=== PATIENT | female | born 1995 | race Caucasian/White ===

== ENCOUNTER 2019-04-02 23:01 | Emergency (ER) | payer BC, MEDICAID ==
[~2019-04-02] VITALS: Ht 160 cm; Wt 50.0 kg
--- NOTE | 2019-04-02 23:28 | NUR ---
Patient states she has had epigastric pain, nasal congestion, nausea, and diarrhea x5 days. Nothing makes it better. Patient is in no apparent distress. She is resting in bed. States pain is 10/10.
[2019-04-02] MEDS ORDERED: HYDROcodone/APAP 5/325 TABLET PO ONE (23:30)
[2019-04-02] MEDS ORDERED: HYDROcodone/APAP 5/325 TABLET ONE (23:44)
[2019-04-02 23:46] LABS: BASOPHILS # (AUTO) 0.02 x10^3/uL (0-0.1); BASOPHILS % (AUTO) 0 % (0-1); EOSINOPHILS % (AUTO) 0 % (1-7); LYMPHOCYTES # (AUTO) 1.73 x10^3/uL (1-3.4); LYMPHOCYTES % (AUTO) 36 % (22-44); MD NO; MEAN CORPUSCULAR HEMOGLOBIN 29.5 pg (27.0-34.8); MEAN CORPUSCULAR HGB CONC 33.5 g/dL (32.4-35.8); MEAN PLATELET VOLUME 7.8 fL (7.4-10.4); MONOCYTES # (AUTO) 0.49 x10^3/uL (0.2-0.8); MONOCYTES % (AUTO) 10 % (2-9); NEUTROPHILS % (AUTO) 54 % (42-75); PLATELET COUNT 147 x10^3/uL (130-400); RED BLOOD COUNT 5.04 x10^6/uL (3.82-5.3); RED CELL DISTRIBUTION WIDTH 13.9 % (9.6-15.2)
[2019-04-02 23:50] LABS: RAPID INFLUENZA A Negative (Negative); RAPID INFLUENZA B Negative (Negative)
[2019-04-02 23:58] LABS: ALBUMIN 3.8 g/dL (3.4-5.0); ANION GAP 8 mmol/L (5-15); CALCIUM 8.6 mg/dL (8.5-10.1); CHLORIDE 111 mmol/L (98-107)
[2019-04-03 00:19] VITALS: BP 102/70
[2019-04-03 00:55] LABS: CULTURE INDICATED? YES; MICROSCOPIC INDICATED
--- NOTE | 2019-04-03 01:10 | NUR ---
REPORT RECEIVED, POC DISCUSSED, CARE ASSUMED. URINE SAMPLE PENDING.
--- NOTE | 2019-04-03 01:50 | NUR ---
PT DC'D HOME WITH RX X3 AND UNDERSTANDING OF INSTRUCTIONS. PT AMBULATED TO DC DESK WITHOUT DIFFICULTY.
== END 2019-04-03 01:52 | disposition home or self-care (01) ==
LOC: ED 04-03 00:42
DX: B34.9 Viral infection, unspecified (principal); N30.00 Acute cystitis without hematuria; M79.10 Myalgia, unspecified site; R11.0 Nausea
CPT/HCPCS: 36415; 80048; 81001; 82040; 83605; 85025; 87040; 87077; 87086; 87186; 87400; 99283

== ENCOUNTER 2019-04-04 16:00 | Emergency (ER) | payer BC ==
[~2019-04-04] VITALS: Ht 160 cm; Wt 48.7 kg
[2019-04-04 17:17] LABS: BASOPHILS % (AUTO) 2 % (0-1); EOSINOPHILS # (AUTO) 0.03 x10^3/uL (0-0.4); EOSINOPHILS % (AUTO) 1 % (1-7); LYMPHOCYTES # (AUTO) 2.63 x10^3/uL (1-3.4); LYMPHOCYTES % (AUTO) 46 % (22-44); MD NO; MEAN CORPUSCULAR VOLUME 90.7 fL (80-100); MEAN PLATELET VOLUME 7.7 fL (7.4-10.4); MONOCYTES # (AUTO) 0.41 x10^3/uL (0.2-0.8); MONOCYTES % (AUTO) 7 % (2-9); NEUTROPHILS # (AUTO) 2.58 x10^3/uL (1.8-6.8); NEUTROPHILS % (AUTO) 45 % (42-75); PLATELET COUNT 164 x10^3/uL (130-400); RED BLOOD COUNT 5.14 x10^6/uL (3.82-5.3); RED CELL DISTRIBUTION WIDTH 14.3 % (9.6-15.2)
[2019-04-04 17:30] LABS: CHLORIDE 110 mmol/L (98-107)
[2019-04-04 17:42] LABS: ALANINE AMINOTRANSFERASE 34 U/L (12-78); ALKALINE PHOSPHATASE 60 U/L (45-117); ANION GAP 6 mmol/L (5-15); BILIRUBIN,TOTAL 0.5 mg/dL (0.2-1.0); TOTAL PROTEIN 8.4 g/dL (6.4-8.2)
--- NOTE | 2019-04-04 18:18 | NUR ---
[employer] associate: Pt ambulatory to ED room 02 from raheel in [facility] at this time.
--- NOTE | 2019-04-04 18:19 | NUR ---
PT WITH C/O N/V/D SINCE 04/02. PT WAS HERE AND DISCHARGED HOME AND SYMPTOMS HAVE NOT RELEIVED. PT IN HOSPITAL GOWN AT THIS TIME.
--- NOTE | 2019-04-04 18:45 | NUR ---
ERPROVIDER IN TO EVAL PT, AWAITING ORDERS AT THIS TIME
[2019-04-04 18:47] LABS: CULTURE INDICATED? YES; MICROSCOPIC INDICATED
[2019-04-04] MEDS ORDERED: MAALOX/HYOSCYAMINE/LIDOCAINE 45 ML BTL PO ONE (19:00)
[2019-04-04] MEDS ORDERED: ONDANSETRON ODT 4 MG PO ONE (19:00)
[2019-04-04] MEDS ORDERED: ONDANSETRON ODT 4 MG ONE (19:00)
[2019-04-04] MEDS ORDERED: MAALOX/HYOSCYAMINE/LIDOCAINE 45 ML BTL ONE (19:00)
--- NOTE | 2019-04-04 19:05 | NUR ---
Received report from diurnal RN. Assumed patient care. Noted new orders for medications. RN to bedside with medications (see eMAR) Awaiting lab and urine lab results.
[2019-04-04 19:43] VITALS: BP 132/72
--- NOTE | 2019-04-04 19:43 | NUR ---
Patient transported out of room for ultrasound imaging of abdomen. Awaiting results
--- NOTE | 2019-04-04 20:25 | NUR ---
Patient back in room, resting comfortably, awaiting recheck and disposition by provider.
== END 2019-04-04 20:50 | disposition home or self-care (01) ==
LOC: ED 19:02
DX: K29.00 Acute gastritis without bleeding (principal); R10.13 Epigastric pain; R11.2 Nausea with vomiting, unspecified; M79.10 Myalgia, unspecified site; F12.10 Cannabis abuse, uncomplicated; Z72.89 Other problems related to lifestyle
CPT/HCPCS: 36415; 76700; 80053; 81001; 83690; 84703; 85025; 87077; 87086; 87186; 99284; Q0162